=== PATIENT | female | born 1985 | race Caucasian/White ===

== ENCOUNTER 2019-09-02 16:48 | Inpatient (IN) | payer BC ==
[2019-09-02] MEDS ORDERED: ELECTROLYTE-148 SOLN 1,000 ML IV ONE (17:00)
[2019-09-02] MEDS ORDERED: AMPICILLIN SODIUM 2 GM VIAL ONE (17:01)
[2019-09-02] MEDS ORDERED: AMPICILLIN SODIUM 1 GM VIAL ONE (17:01)
[2019-09-02] MEDS ORDERED: ELECTROLYTE-148 SOLN 1,000 ML IV SCH ×2 (17:30→18:45)
[2019-09-02 17:34] LABS: BASO % 0.1 % (0-2.0); EOS % 0.3 % (0-4.5); HEMATOCRIT 34.7 % (32.4-45.2); HEMOGLOBIN 11.5 GM/dL (10.7-15.3); MCH 27.8 pg (25.7-33.7); MEAN CELL VOLUME 84.4 fl (80-96); MEAN PLT VOLUME 9.4 fl (7.5-11.1); MONO % 3.8 % (3.8-10.2); NEUT % 87.8 % (42.8-82.8); PLATELET COUNT 172 K/MM3 (134-434); RBC 4.11 M/mm3 (3.60-5.2); RDW 14.9 % (11.6-15.6); WHITE BLOOD COUNT 13.5 K/mm3 (4.0-10.0)
[2019-09-02 17:38] VITALS: BMI 31.5
[2019-09-02] MEDS ORDERED: AMPICILLIN SODIUM 250 MG VIAL IVPB ONE (17:38)
[2019-09-02 17:40] LABS: INR 0.84 (0.83-1.09); PROTHROMBIN TIME (PATIENT) 9.9 SEC (9.7-13.0)
[2019-09-02 17:43] LABS: ACTIVATED PTT 26.1 SECONDS (25.2-36.5)
[2019-09-02] MEDS ORDERED: AMPICILLIN - 2 GM in SODIUM CHLORIDE 100 ML IVPB ONE (17:45)
[2019-09-02 17:56] LABS: BLOOD UREA NITROGEN 4.5 mg/dL (7-18); CALCIUM 7.9 mg/dL (8.5-10.1); CREATININE 0.6 mg/dL (0.55-1.3); POTASSIUM 3.7 mmol/L (3.5-5.1)
[2019-09-02] MEDS ORDERED: CITRIC ACID/SODIUM CITRATE 30 ML UNIT-DOSE CUP PO ONE (18:15)
[2019-09-02] MEDS ORDERED: ONDANSETRON 4 MG/2 ML VIAL IVPUSH PRN (18:31)
[2019-09-02] MEDS ORDERED: BENZOCAINE 28 GM HEMORRHOIDAL OINTMENT RC PRN (18:37)
[2019-09-02] MEDS ORDERED: METHYLERGONOVINE MALEATE 0.2 MG/1 ML AMP IM PRN (18:37)
[2019-09-02] MEDS ORDERED: BENZOCAINE 20% 57 GM BOTTLE TP PRN (18:37)
[2019-09-02] MEDS ORDERED: WITCH HAZEL 50% (TUCKS) 40 PAD/JAR PAD TP PRN (18:37)
[2019-09-02] MEDS ORDERED: HYDROmorphone HCL 2 MG TABLET PO PRN (18:37)
[2019-09-02] MEDS ORDERED: diphenhydrAMINE HCL 25 MG CAPSULE (FP) PO PRN (18:37)
[2019-09-02] MEDS ORDERED: IBUPROFEN 800 MG/8 ML IJ IVPB PRN (18:37)
--- NOTE | 2019-09-02 18:37 | HP ---
Past Medical History - Primary Care Physician PCP:: Diane Patel - Admission History of Present Illness: 34 yo EDC EGA 38 week admitted in labor with previous CS History Source: Patient Limitations to Obtaining History: No Limitations - Past Medical History ...: 2 ...Para: 1 ...Term: 1 ...: 0 ...Spon : 0 ...Induced : 0 ...Living Children: 1 ...Multiple Gestation: 0 ...LMP: 12/10/18 ... Weeks Gestation by Dates: 38.0 ...EDC by Dates: 09/16/19 ...EDC by Sono: 09/13/19 Heme/Onc: Yes: Sickle Cell Trait. No: Bleeding Disorder - Past Surgical History Past Surgical History: Yes: Hx Myomectomy: No Hx Transabdominal Cerclage: No - Smoking History Smoking history: Never smoked Have you smoked in the past 12 months: No Aproximately how many cigarettes per day: 0 - Alcohol/Substance Use Hx Alcohol Use: No History of Substance Use: reports: None - Social History Usual Living Arrangement: Yes: With Spouse ADL: Independent History of Recent Travel: No Home Medications - Allergies Allergies/Adverse Reactions: Allergies Allergy/AdvReac Type Severity Reaction Status Date / Time No Known Allergies Allergy Verified 09/02/19 17:21 - Home Medications Home Medications: Ambulatory Orders Vit No.124/Iron/Folic [ Vitamin Tablet] 1 each PO DAILY 08/10/15 Review of Systems - Review of Systems Constitutional: reports: No Symptoms Eyes: reports: No Symptoms HENT: reports: No Symptoms Neck: reports: No Symptoms Cardiovascular: reports: No Symptoms Respiratory: reports: No Symptoms Gastrointestinal: reports: Abdominal Pain Genitourinary: reports: No Symptoms Breasts: reports: No Symptoms Reported Musculoskeletal: reports: No Symptoms Integumentary: reports: No Symptoms Neurological: reports: No Symptoms Endocrine: reports: No Symptoms Hematology/Lymphatic: reports: No Symptoms Psychiatric: reports: No Symptoms Physical Exam - Maternity Vital Signs: Vital Signs Temperature 98.6 F 09/02/19 18:00 Pulse Rate 72 09/02/19 18:00 Respiratory Rate 18 09/02/19 18:00 Blood Pressure 115/66 09/02/19 18:00 O2 Sat by Pulse Oximetry (%) Constitutional: Yes: Well Nourished, No Distress Cardiovascular: Yes: WNL Lungs: Clear to auscultation Breast(s): Yes: WNL - Abdominal Exam/OB Fundal Height: 38 Number of Fetuses: Single Presentation: Vertex Contractions: Yes Regularity: Regular Monitor Mode: External Category: I Accelerations: Non-Uniform Decelerations: None - Vaginal Exam/OB Speculum Exam: No Dilatation (cm): 5 cm Amniotic Membrane Status: Intact Presentation: Vertex/Position - Physical Exam Musculoskeletal: Yes: WNL Extremities: Yes: WNL Edema: No Integumentary: Yes: WNL ...Motor Strength: WNL Psychiatric: Yes: WNL, Alert, Oriented - Labs Lab Results: CBC, BMP 09/02/19 17:15 09/02/19 17:15 Hemorrhage Risk Assessment - Risk Factors Medium Risk Factors: Yes: Prior , uterine surgery,or multiple laparotomies Risk Score: 1 Risk Level: Medium Risk Problem List - Problems (1) 38 weeks gestation of Code(s): Z3A.38 - 38 WEEKS GESTATION OF (2) Previous delivery affecting , antepartum Code(s): O34.219 - MATERNAL CARE FOR UNSP TYPE SCAR FROM PREVIOUS DEL (3) Labor abnormality, antepartum Code(s): O62.9 - ABNORMALITY OF FORCES OF LABOR, UNSPECIFIED (4) Labor and delivery affected by unusually large fetus Code(s): O33.5XX0 - MATERN CARE FOR DISPROPRTN D/T UNUSUALLY LARGE FETUS, UNSP Assessment/Plan Macrosomia cat 1 previous CS iup at 38 week labor Plan repeat CS
[2019-09-02] MEDS ORDERED: morphine SULFATE/PF 0.5 MG/ML (2cc Syringe - QUVA) ONE (18:42)
[2019-09-02] MEDS ORDERED: OXYTOCIN 20 UNITS in 0.9% NS 20 UNIT/1,000 ML INFUS.BAG IV SCH (18:45)
[2019-09-02] MEDS ORDERED: OXYTOCIN 10 UNITS/ML VIAL ONE ×2 (18:50→18:52)
--- NOTE | 2019-09-02 19:16 | OP ---
Operative Note - Note: Operative Date: 09/02/19 Pre-Operative Diagnosis: previous Section. Active labor. iup at 38 week Operation: Low transverse section. Active labor. iup at 38 weeks Findings: live Post-Operative Diagnosis: Same as Pre-op Surgeon: Diane Patel Employee Service Officer: Chava Vegas Anesthesia: Spinal Operative Report Dictated: Yes
[2019-09-02] MEDS ORDERED: ceFAZolin SODIUM 1 GM VIAL ONE (19:24)
[2019-09-02] MEDS ORDERED: PHENYLEPHRINE HCL 10 MG/1 ML SINGLE DOSE VIAL ONE (19:34)
[2019-09-02] MEDS ORDERED: OXYTOCIN 20 UNITS in 0.9% NS 20 UNIT/1,000 ML INFUS.BAG IV ONE ×2 (20:41→21:44)
[2019-09-02 21:37] LABS: CORD HCO3 26.2 mmHg (20-29); CORD PCO2 65.1 mmHg (30-78); CORD pH 7.223 (7.14-7.44)
[2019-09-02 21:38] LABS: CORD HCO3 24.9 mmHg (20-29); CORD PCO2 48.1 mmHg (30-78); CORD pH 7.332 (7.14-7.44)
[2019-09-03 08:43] LABS: HEMATOCRIT 34.5 % (32.4-45.2); HEMOGLOBIN 11.2 GM/dL (10.7-15.3); MCH 27.5 pg (25.7-33.7); MCHC 32.4 g/dl (32.0-36.0); MEAN CELL VOLUME 84.9 fl (80-96); MEAN PLT VOLUME 9.5 fl (7.5-11.1); PLATELET COUNT 168 K/MM3 (134-434); RBC 4.06 M/mm3 (3.60-5.2); RDW 14.9 % (11.6-15.6); WHITE BLOOD COUNT 20.8 K/mm3 (4.0-10.0)
--- NOTE | 2019-09-03 08:53 | PN ---
Progress Note (short form) - Note Progress Note: Anesthesiology Post Op Note Patient is s/p c section under spinal anesthesia with duramorph for post op pain control. No events overnight, no nausea or vomiting, pain controlled, dept of anesthesiology will sign off care at this time
[2019-09-03] MEDS ORDERED: oxyCODONE HCL 5 MG TABLET PO PRN ×2 (10:00)
[2019-09-03] MEDS ORDERED: FLU VACCINE QUAD 60 MCG/0.5 ML (MDV 19-20) IM ONE (10:00)
[2019-09-03] MEDS: ACETAMINOPHEN 325 MG TABLET (FP) PO PRN ×3 (11:35→22:31)
[2019-09-03] MEDS: SIMETHICONE 80 MG TAB.CHEW (FP) PO PRN ×3 (11:35→22:30)
[2019-09-03] MEDS: IBUPROFEN 600 MG TABLET (FP) PO PRN ×3 (11:35→22:30)
[2019-09-03] MEDS ORDERED: BISACODYL 10 MG SUPP.RECT PR PRN (18:38)
[2019-09-04] MEDS: IBUPROFEN 600 MG TABLET (FP) PO PRN ×2 (04:33→11:32)
[2019-09-04] MEDS: ACETAMINOPHEN 325 MG TABLET (FP) PO PRN ×2 (04:33→11:33)
[2019-09-04] MEDS: SIMETHICONE 80 MG TAB.CHEW (FP) PO PRN ×2 (04:33→11:33)
[2019-09-04] MEDS ORDERED: DIPHTH,PERTUSS(ACELL),TET 0.5 ML DISP.SYRIN IM ONE (10:00)
[2019-09-04] MEDS ORDERED: FLU VACC QS2019-20(6MOS UP)/PF 60 MCG/0.5 ML SYRINGE IM ONE (10:00)
[2019-09-04 14:42] VITALS: BP 108/57; PULSE 73; TEMP 97.4
[2019-09-04] MEDS ORDERED: SENNOSIDES/DOCUSATE COMBO (SENNA PLUS) TABLET (UD) PO PRN (22:00)
--- NOTE | 2019-09-10 17:52 | PATH ---
Surgical Pathology Report Patient Name: LILI LANDAVERDE Med. Rec. #: [id number] /Age/Gender: 1985 (Age: 34) / F Account: [id number] Location: [address] [place] [address] OBG/ROUTE DRIVER SALESPERSON Taken: 09/02/2019 Received: 09/03/2019 Reported: 09/10/2019 Physicians: Diane Patel M.D. Specimen(s) Received PLACENTA Clinical History , previous , 38.3 weeks' gestation in labor Final Diagnosis PLACENTA: THIRD TRIMESTER PLACENTA WITH SUBCHORIONIC AND PERIVILLOUS FIBRIN DEPOSITION. TRIVASCULAR CORD. MEMBRANES WITH NO DIAGNOSTIC ABNORMALITIES. Electronically Signed Chapo Hodgson M.D. Gross Description The specimen is received fresh labeled placenta and is a 487 gram, 13.5 x 16.5 x 3.2 cm. placenta with attached membranes and umbilical cord. The attached membranes are cosme, translucent with focal opacities and insert marginally. The umbilical cord measures 11.5 cm. in length and averages 1.2 cm. in diameter. The cord inserts eccentrically, 3 cm. to the nearest margin. No true knots or strictures are identified. Cut surface of the umbilical cord reveals 3 vessels. The surface is bedolla blue with moderate fibrin deposition and appropriate caliber vessels. The maternal surface is red-brown with focal defects. Sectioning reveals red-brown, spongy parenchyma. No lesions are identified. Manager Of Compensation sections are submitted in three cassettes as follows: 1- membrane rolls and umbilical cord; 2-3- full thickness sections of placenta. 09/05/2019 [facility]09/05/2019
== END 2019-09-04 14:40 | disposition home or self-care (01) | DRG 788 ==
LOC: JLDR 16:48 → J3N 22:05
PROVIDERS: ADMIT Obstetrics & Gynecology; ATTEND Obstetrics & Gynecology
PROC: 10D00Z1 Extraction of Products of Conception, Low, Open Approach (ICD-10-PCS; principal; 2019-09-02)
DX: O34.219 Maternal care for unspecified type scar from previous cesarean delivery (principal); Z3A.38 38 weeks gestation of pregnancy; Z37.0 Single live birth
CPT/HCPCS: 36415; 36600; 59025; 80048; 82803; 85025; 85027; 85610; 85730; 86780; 86850; 86900; 86901; 87389; 88307-TC; 90686; 90715; G0008; U0003